=== PATIENT | male | born 2000 | race Caucasian/White ===

== ENCOUNTER 2020-11-13 21:57 | Emergency (ER) | payer SELFPAY ==
[~2020-11-13] VITALS: Ht 172.7 cm; Wt 85.0 kg
--- NOTE | 2020-11-13 23:09 | ED Lower Extremity ---
General Chief Complaint: Lower Extremity Stated Complaint: R ANKLE INJURY Nursing Triage Note: Pt ambulatory into ER with complaint of R. ankle injury. Pt fell off 1 step while taking out trash and heard a pop. Little to no swelling or bruising. Source: patient Exam Limitations: no limitations History of Present Illness Date Seen by Provider: Nov 13, 2020 Time Seen by Provider: 22:55 Initial Comments Here with report of right ankle pain after missing the last step when walking out to take out the trash. States he felt a crackle and pop to his right ankle. Pain on the medial aspect but not on the lateral aspect and denies any pain near the knee. He was wearing boots at the time. Denies other injury. Onset: just prior to arrival (Approximately 1 to 2 hours ago) Severity: moderate Pain/Injury Location: right ankle Method of Injury: fell, twisted Modifying Factors: Worse With Movement; Improves With Rest Allergies and Home Medications Patient Home Medication List Home Medication List Reviewed: Yes Review of Systems Constitutional: no symptoms reported Respiratory: no symptoms reported Cardiovascular: no symptoms reported Musculoskeletal: joint pain; No joint swelling Skin: No change in color, No lesions Past Szrwjml-Yrgahm-Lohknp Hx Patient Social History Tobacco Use?: No Use of E-Cig and/or Vaping dev: No Substance use?: No Alcohol Use?: No Pt feels they are or have been: No Immunizations Up To Date Influenza Vaccine Up-to-Date: No; Not Current Family Medical History No Pertinent Family Hx Physical Exam Vital Signs Vital Signs - First Documented 11/13/20 22:40 Temp 36.6 Pulse 67 Resp 18 B/P (MAP) 135/70 (91) Pulse Ox 99 Capillary Refill : Less Than 3 Seconds Height, Weight, BMI Height: '" Weight: lbs. oz. kg; 28.00 BMI Method: General Appearance: WD/WN, no apparent distress Cardiovascular: regular rate, rhythm, no murmur Respiratory: lungs clear, normal breath sounds Ankles: right ankle limited range of motion, right ankle soft tissue tenderness, right ankle swelling (Mild medial), right ankle other (No obvious deformity. Distal circulation, sensation and movement intact.) Neurologic/Psychiatric: alert, oriented x 3 Skin: normal color, warm/dry Progress/Results/Core Measures Results/Orders Vital Signs/I&O 11/13/20 22:40 Temp 36.6 Pulse 67 Resp 18 B/P (MAP) 135/70 (91) Pulse Ox 99 Blood Pressure Mean: 91 Progress Progress Note : Progress Note Seen and evaluated. X-ray right ankle. Ice pack given. Patient declined pain medicine. Monitor patient. 2355: X-ray negative for acute fracture. Blas wrap and gel splint given. Discharged home with return precautions. Patient verbalized understanding instructions and agreement with plan. Diagnostic Imaging Diagonstic Imaging: Xray Plain Films/CT/US/NM/MRI: other Comments [facility], [place] NAME: SHARITA ROB [facility] REC#: [id number] PT STATUS: REG ER : 2000 PHYSICIAN: STARR LIZAMA APRN ADMIT DATE: 11/13/20/ER Signed Date of Exam:11/13/20 ANKLE, RIGHT, 3 VIEWS INDICATION: Right ankle injury 3 views of the right ankle show no fracture, dislocation or other acute abnormalities. IMPRESSION: Negative right ankle Dictated by: Dictated on workstation # [id number] Dict: 11/13/20 2338 Trans: 11/13/20 2346 [facility] [id number] Interpreted by: GINNA DALTON MD Electronically signed by: GINNA DALTON MD 11/13/206 Departure Impression Primary Impression: Sprain of right ankle Qualified Codes: S93.401A - Sprain of unspecified ligament of right ankle, initial encounter Disposition: 01 HOME, SELF-CARE Condition: Stable Departure-Patient Inst. Decision time for Depature: 23:56 Patient Instructions: Ankle Sprain (DC) Add. Discharge Instructions: All discharge instructions reviewed with patient and/or family. Voiced understanding. You may take ibuprofen 600 mg every 8 hours as needed for pain. You may also ta ke Tylenol/acetaminophen 1000 mg every 8 hours as needed for pain. Use Blas wrap as needed for comfort over the next several days. You may use gel splint as needed for comfort over the next several days. Use ice pack to area of concern 20 minutes/h as needed to reduce swelling. Continue rest, ice, elevation and compression therapy over the next few days and then as needed. Follow-up with your doctor early next week for recheck and further evaluation if not improving. Return for worse pain, swelling, weakness or other concerns as needed. Work/School Note: Work Release Form Date Seen in the Emergency Department: Nov 13, 2020 Return to Work: Nov 16, 2020 Restrictions: No Restrictions GINNA IVAN MD Nov 13, 2020 23:09
--- NOTE | 2020-11-13 23:42 | Diagnostic Imaging Report ---
INDICATION: Right ankle injury 3 views of the right ankle show no fracture, dislocation or other acute abnormalities. IMPRESSION: Negative right ankle Dictated by: Dictated on workstation # [id number]
[2020-11-14 00:09] VITALS: BP 128/68
== END 2020-11-14 00:07 | disposition home or self-care (01) ==
LOC: EDUNIT# 21:57 → ER 22:02
DX: S93.401A Sprain of unspecified ligament of right ankle, initial encounter (principal); X50.1XXA Overexertion from prolonged static or awkward postures, initial encounter
CPT/HCPCS: 73610